=== PATIENT | male | born 1995 | race Caucasian/White ===

== ENCOUNTER 2020-09-20 13:51 | Emergency (ER) | payer SELFPAY ==
[~2020-09-20] VITALS: Ht 182.9 cm; Wt 68.0 kg
[~2020-09-20 13:51] MED LIST: ALBUPOW26; ALBUTEROL INHALER; IPR002IS
[2020-09-20] MEDS ORDERED: methylPREDNISolone SOD SUCC 125 MG/2 ML VL ONE (14:04)
[2020-09-20 14:09] VITALS: BP 123/71
[2020-09-20] MEDS ORDERED: methylPREDNISolone SOD SUCC 125 MG/2 ML VL IV ONE (14:15)
== END 2020-09-20 14:45 | disposition left against medical advice (07) ==
LOC: ER 13:51 → EDBD 13:51 → ER 14:45
DX: T78.40XA Allergy, unspecified, initial encounter (principal); X58.XXXA Exposure to other specified factors, initial encounter; Z53.21 Procedure and treatment not carried out due to patient leaving prior to being seen by health care provider